=== PATIENT | female | born 1985 | race Two or more races ===

== ENCOUNTER 2023-08-22 17:30 | Emergency (ER) | payer OTHER ==
[~2023-08-22] VITALS: Ht 165.1 cm; Wt 99.5 kg
[2023-08-22 21:36] LABS: COVID19 ANTIGEN SOFIA FIA NEGATIVE (NEGATIVE); Rapid Influenza A Negative (Negative); Rapid Influenza B Negative (Negative)
[2023-08-22] MEDS: ALBUTEROL SULF 2.5 MG/0.5ML(0.5%) NEB SOLN NEB ONE (22:55)
[2023-08-22] MEDS: IPRATROPIUM BROM 0.5 MG/2.5ML INH SOL NEB ONE (22:56)
[2023-08-22] MEDS: DexAMETHasone SOD PHOS 10MG/1ML VIAL INJ IM ONE (23:05)
[2023-08-22] MEDS: IBUPROFEN 800 MG TAB PO ONE (23:05)
[2023-08-22] MEDS: guaiFENesin-DM 100/10mg/5ml SYR PO ONE (23:06)
[2023-08-22] MEDS: ACETAMINOPHEN 325 MG TAB PO ONE (23:14)
[2023-08-22 23:23] LABS: Urine Bacteria FEW /hpf (None Seen); Urine Blood 3+ /uL (Negative); Urine Clarity HAZY (Clear); Urine Color PINK (Yellow); Urine Mucus FEW (None Seen); Urine Protein, UAD 2+ (Negative); Urine WBC 366 /hpf (0 - 5)
[2023-08-22] MEDS ORDERED: cefTRIAXone 2GM/50ML D5W 50 ML IV ONE (23:45)
[2023-08-22] MEDS ORDERED: PHEN-922 PO (23:46)
[2023-08-22] MEDS ORDERED: BENZ200C64 PO (23:46)
[2023-08-22] MEDS ORDERED: ALBU108A5 IN (23:46)
[2023-08-22] MEDS ORDERED: PRED20TA2 PO (23:46)
[2023-08-22] MEDS ORDERED: CIPR-173 PO (23:46)
[2023-08-23] MEDS: SODIUM CHLORIDE 0.9% 1,000 ML IV ONE (00:57)
[2023-08-23] MEDS: SODIUM CHLORIDE 0.9% 2,000 ML IV ONE (01:29)
[2023-08-23] MEDS: cefTRIAXone 1GM/50ML D5W 50 ML IV ONE (01:56)
[2023-08-23 03:55] VITALS: BP 144/83; PULSE 94; RESP 20; TEMP 97.7; O2SAT 96
== END 2023-08-23 04:54 | disposition home or self-care (01) ==
LOC: ER 17:30
DX: J20.9 Acute bronchitis, unspecified (principal); N39.0 Urinary tract infection, site not specified; R50.9 Fever, unspecified; Z20.822 Contact with and (suspected) exposure to COVID-19; Z79.899 Other long term (current) drug therapy
CPT/HCPCS: 36415; 71045; 81001; 81025; 87426; 87804; 94640; 96361; 96365; 96372; 99284; J0696; J1100; J7030; J7644

== ENCOUNTER 2023-12-01 18:23 | Emergency (ER) | payer OTHER ==
[~2023-12-01] VITALS: Ht 165.1 cm; Wt 101.2 kg
[~2023-12-01 18:23] MED LIST: ALBU108A5 IN; BENZ200C64 PO; CIPR-173 PO; PHEN-922 PO; PRED20TA2 PO
[2023-12-01 18:40] VITALS: PULSE 105; RESP 20; O2SAT 96
[2023-12-01] MEDS: ACETAMINOPHEN 325 MG TAB PO ONE (21:23)
[2023-12-01 21:37] LABS: Urine Bacteria None Seen /hpf (None Seen)
[2023-12-01 21:44] LABS: Urine Blood 2+ /uL (Negative); Urine Clarity Turbid (Clear); Urine Color Yellow (Yellow); Urine Mucus FEW (None Seen); Urine Protein, UAD TRACE (Negative); Urine Specific Gravity 1.017 (1.001-1.035); Urine Urobilinogen Normal (Negative); Urine WBC 13 /hpf (0 - 5); Urine pH 5.5 (5.0-9.0)
[2023-12-01] MEDS: cloNIDine HCL 0.1 MG TAB PO ONE (21:44)
[2023-12-01 22:00] LABS: Rapid Influenza A Negative (Negative)
[2023-12-01 22:01] LABS: Rapid Influenza B Negative (Negative)
[2023-12-01 22:03] LABS: COVID19 ANTIGEN SOFIA FIA POSITIVE (NEGATIVE)
[2023-12-01] MEDS ORDERED: AMOX875T4 PO (22:07)
[2023-12-01] MEDS ORDERED: CYCL-837 PO (22:07)
[2023-12-01] MEDS ORDERED: ACET500T58 PO (22:07)
[2023-12-01 22:45] VITALS: BP 146/99
== END 2023-12-01 22:55 | disposition home or self-care (01) ==
LOC: ER 18:23
DX: S16.1XXA Strain of muscle, fascia and tendon at neck level, initial encounter (principal); U07.1 COVID-19; I10 Essential (primary) hypertension; N39.0 Urinary tract infection, site not specified; J45.909 Unspecified asthma, uncomplicated; F17.210 Nicotine dependence, cigarettes, uncomplicated; Z90.49 Acquired absence of other specified parts of digestive tract; Z79.2 Long term (current) use of antibiotics; Z79.899 Other long term (current) drug therapy; Z88.1 Allergy status to other antibiotic agents; Z88.5 Allergy status to narcotic agent; Z88.8 Allergy status to other drugs, medicaments and biological substances; X58.XXXA Exposure to other specified factors, initial encounter; Y93.89 Activity, other specified; Y92.89 Other specified places as the place of occurrence of the external cause; Y99.8 Other external cause status
CPT/HCPCS: 36415; 70450; 72040; 81001; 81025; 87426; 87804